=== PATIENT | male | born 1995 | race Hispanic/Latino ===

== ENCOUNTER 2020-01-03 07:14 | Outpatient (CLI) | payer BC, OTHER ==
[2020-01-03 16:28] LABS: Hemoglobin 14.2 g/dL (14.0-18.0); Mean Corpuscular HGB CONC 29.5 g/dL (32.0-36.0); Mean Corpuscular Hemoglobin 25.1 pg (27.0-31.0); Mean Corpuscular Volume 85.1 fL (78.0-98.0); Mean Platelet Volume 7.6 fL (7.4-10.4); Platelet Count 261 thou/uL (130-400); RBC Distribution Width 12.3 % (11.5-14.5); Red Blood Cell (RBC) Count 5.67 mill/uL (4.70-6.10); White Blood Cell (WBC) Count 7.5 thou/uL (4.8-10.8)
[2020-01-03 16:32] LABS: Anion Gap 17 mmol/L (10-20); BUN (Urea Nitrogen) 14 mg/dL (8.9-20.6); Calc. Creatinine Clearance 0 mL/min (70-130); Calcium 9.7 mg/dL (7.8-10.44); Carbon Dioxide 25 mmol/L (22-29); Chloride 103 mmol/L (98-107); Estimated GFR-MDRD 86; Glucose 91 mg/dL (70-105); Potassium 4.5 mmol/L (3.5-5.1); Sodium 140 mmol/L (136-145)
[2020-01-03 16:42] LABS: Bacteria/HPF None Seen HPF (None Seen); Bilirubin Negative (Negative); Blood, Urine 1+ (Negative); Clarity Clear (Clear); Glucose, Urine (Dipstick) Normal (Negative); Ketone, Urine 40 mg/dL (Negative); Leukocyte Negative Leu/uL (Negative); Nitrite Negative (Negative); Protein, Urine (Dipstick) 10 mg/dL (Neg-Trace); Specific Gravity, Urine 1.021 (1.002-1.036); Squamous Epithelial None Seen HPF (0-3); Urobilinogen 3 mg/dL (Less than 2); WBC/HPF 0-3 HPF (0-3)
[2020-01-03 16:46] LABS: PTT 28.6 sec (22.9-36.1); Prothrombin Time 13.2 sec (12.0-14.7)
[2020-01-04 12:33] LABS: SARS-CoV-2 MS2 Positive; SARS-CoV-2 N Gene Negative; SARS-CoV-2 S Gene Negative; SARS-CoV-2 by NAA Not Detected (NotDetected); SARS-CoV-2 orf1ab Negative
== END 2020-01-03 07:15 | disposition home or self-care (01) ==
LOC: LABBT 07:14
PROVIDERS: ATTEND Urology
DX: Z01.818 Encounter for other preprocedural examination (principal); Z20.828 Contact with and (suspected) exposure to other viral communicable diseases; N20.0 Calculus of kidney
CPT/HCPCS: 80048; 81001; 85027; 85610; 85730; 87086; 87635; U0003

== ENCOUNTER 2020-01-06 09:06 | Day surgery (SDC) | payer BC ==
[2020-01-04 12:15] VITALS: BMI 33.6
[2020-01-06] MEDS ORDERED: Levofloxacin 500 mg/D5W 100 ml Premix Bag ONE (09:53)
[2020-01-06] MEDS ORDERED: Iothalamate Meglumine 60% 50 ML VIAL FS ONE (11:59)
[2020-01-06] MEDS ORDERED: Ondansetron PF 4 MG/2 ML Vial ONE (12:20)
[2020-01-06] MEDS ORDERED: Dexamethasone 20 MG/5 ML VIAL ONE (12:20)
[2020-01-06] MEDS ORDERED: PROPOFOL 200 MG/20 ML VIAL ONE (12:20)
[2020-01-06] MEDS ORDERED: Fentanyl 100 MCG/2 ML VIAL ONE ×2 (12:41→13:14)
[2020-01-06] MEDS ORDERED: Ketorolac Tromethamine 30 MG/ML VIAL ONE (13:11)
[2020-01-06] MEDS ORDERED: Oxybutynin 5 MG TAB ONE (13:11)
[2020-01-06] MEDS ORDERED: Promethazine HCl 25 MG/ML VIAL ONE (13:24)
--- NOTE | 2020-01-06 13:47 | OP ---
DATE OF PROCEDURE: 01/06/2020 PREOPERATIVE DIAGNOSIS: Right ureteral stone. POSTOPERATIVE DIAGNOSIS: Right ureteral stone. PROCEDURES PERFORMED: Right ureteroscopy with laser lithotripsy, basket extraction of stone, retrograde pyelogram, intraoperative interpretation of radiologic imaging, 6 x 26 double-J ureteral stent with string placement. ANESTHESIA: General. COMPLICATIONS: None. ESTIMATED BLOOD LOSS: None. SPECIMEN: Right renal stone fragment. DESCRIPTION OF PROCEDURE: After informed consent, the patient was taken to the operating room, transferred to the table on his own power. Anesthesia was established. A time-out was performed showing the correct patient, site, and procedure. Preoperative antibiotics were administered. He was prepped and draped in the lithotomy position. The rigid ureteroscope was advanced through the urethra into the bladder noting a normal course and caliber of the urethra. The right ureteral orifice was cannulated with a wire, which was passed up to the level of the renal pelvis. The scope was inserted alongside the wire and retrograde pyelogram performed showing good filling of the ureter with no obvious filling defects. The scope was passed up to the right UPJ without identifying a stone. At this point, the scope was withdrawn, and an access sheath placed over the wire into the proximal ureter under fluoroscopic guidance. The flexible ureteroscope was then passed through this into the kidney, where the stone was identified in the renal pelvis. The stone was treated with the 200 micron laser fiber and trimmed down to one piece that was then removed with the 1.9 cm basket. This was passed off the specimen. The renal pelvis was then filled with contrast, noting no filling defects or hydronephrosis. A wire was replaced as the scope and access sheath were withdrawn. A 6 x 26 double-J ureteral stent was passed over the wire in position with a curl in the kidney and curl in the bladder under fluoroscopic guidance. Completion images were taken. The strings were left attached and taped to his penis with Tegaderm, for him to remove in the future. He was awoken from anesthesia, transferred back to his hospital bed, and taken to PACU in stable condition, where he will be discharged home upon recovery. Job ID: [id number]
--- NOTE | 2020-01-09 07:21 | RAD ---
EXAM: XR IVP Retrograde PROVIDED CLINICAL HISTORY: Ureteral stent placement COMPARISON: None FINDINGS/IMPRESSION: A single intraoperative fluoroscopic image abdomen is submitted for interpretation. Image demonstrate s surgical instruments overlying the abdomen and pelvis. A right ureteral stent is noted in place. Correlation with intraoperative findings is recommended.
== END 2020-01-06 15:02 | disposition home or self-care (01) ==
LOC: SDC 09:06
PROVIDERS: ATTEND Urology
PROC: 0TC68ZZ Extirpation of Matter from Right Ureter, Via Natural or Artificial Opening Endoscopic (ICD-10-PCS; principal; 2020-01-06)
PROC: 0T768DZ Dilation of Right Ureter with Intraluminal Device, Via Natural or Artificial Opening Endoscopic (ICD-10-PCS; principal; 2020-01-06)
DX: N20.1 Calculus of ureter (principal); J45.909 Unspecified asthma, uncomplicated; Z79.899 Other long term (current) drug therapy
CPT/HCPCS: 74420; 82365; 88300; J1100; J1885; J1956; J2405; J2550; J2704; J3010